=== PATIENT | female | born 1970 | race Caucasian/White ===

== ENCOUNTER 2016-11-26 19:05 | Emergency (ER) | payer MEDICAID ==
[2016-11-26 19:14] VITALS: BMI 24.9
[2016-11-26 19:19] VITALS: BP 156/95; PULSE 75; RESP 19; TEMP 97.8; O2SAT 100
[2016-11-26] MEDS ORDERED: DiphenhydrAMINE 50 mg/ml Inj IVP STA (19:41)
[2016-11-26] MEDS ORDERED: Sodium Chloride 0.9% 1,000 ML IV STA (19:41)
[2016-11-26] MEDS ORDERED: Famotidine 20mg/50ml 20 MG/50 ML BAG IVPB STA (19:42)
--- NOTE | 2016-11-26 19:47 | ED PDOC ---
Arrival/HPI <Robert Forrest - Last Filed: 11/26/16 19:53> - General Historian: Patient - History of Present Illness Time/Duration: < week Context: Home <Juan Jose Stauffer - Last Filed: 12/03/16 22:13> - General Chief Complaint: Allergic Reaction Time Seen by Provider: 11/26/16 19:29 - History of Present Illness Narrative History of Present Illness (Text): 11/26/16 19:43 This 46 yo female presents to this ED c/o b/l facial and neck rash x 4 days. Patient admits she had hair colored x 4 days ago. Denies sob, wheezing, dysphagia, dizziness, recent travel, or sick contact. (Juan Jose Stauffer) Past Medical History - Provider Review Nursing Documentation Reviewed: Yes - Infectious Disease Hx of Infectious Diseases: None - Psychiatric Hx Substance Use: No - Surgical History Hx Section: Yes (x2) Other/Comment: tummy tuck - Anesthesia Hx Anesthesia: Yes Hx Anesthesia Reactions: No <Juan Jose Stauffer - Last Filed: 12/03/16 22:13> Family/Social History - Physician Review Nursing Documentation Reviewed: Yes Family/Social History: No Known Family HX Smoking Status: Current Some Days Smoker Hx Alcohol Use: Yes Frequency of alcohol use: Socially Hx Substance Use: No <Juan Jose Stauffer - Last Filed: 12/03/16 22:13> Allergies/Home Meds <Robert Forrest - Last Filed: 11/26/16 19:53> <Juan Jose Stauffer - Last Filed: 12/03/16 22:13> Allergies/Adverse Reactions: Allergies No Known Allergies Allergy (Verified 11/26/16 19:14) Home Medications: Home Meds Medication Instructions Recorded Confirmed Cyclobenzaprine [Flexeril] 1 tab PO DAILY 11/26/16 11/26/16 Zolpidem [Ambien] 10 mg PO HS 11/26/16 11/26/16 traMADol [Ultram] 1 tab PO DAILY 11/26/16 11/26/16 Review of Systems - Review of Systems Constitutional: Normal. absent: Fatigue, Weight Change, Fevers Eyes: Normal ENT: Normal Respiratory: Normal Cardiovascular: Normal Gastrointestinal: Normal Genitourinary Female: Normal Musculoskeletal: Normal Skin: Rash Neurological: Normal, Headache (rash over forhead and scalp) Endocrine: Normal Hemo/Lymphatic: Normal Psychiatric: Normal <Juan Jose Stauffer P - Last Filed: 12/03/16 22:13> Physical Exam Temperature: Afebrile Blood Pressure: Normal Pulse: Regular Respiratory Rate: Normal Appearance: Positive for: Well-Appearing, Non-Toxic, Comfortable Pain Distress: None Mental Status: Positive for: Alert and Oriented X 3 - Systems Exam Head: Present: Atraumatic, Normocephalic Pupils: Present: PERRL Extroacular Muscles: Present: EOMI Conjunctiva: Present: Normal Mouth: Present: Moist Mucous Membranes Neck: Present: Normal Range of Motion Respiratory/Chest: Present: Clear to Auscultation, Good Air Exchange. No: Respiratory Distress, Accessory Muscle Use, Wheezes Upper Extremity: Present: Normal Inspection, Normal ROM, NORMAL PULSES, Neurovascularly Intact Lower Extremity: Present: Normal Inspection, NORMAL PULSES, Normal ROM Neurological: Present: GCS=15, CN II-XII Intact, Speech Normal, Motor Func Grossly Intact, Normal Sensory Function, Gait Normal Skin: Present: Warm, Dry, Rashes (mild papular rash, resembles contact dermatitis, blanches on palpation), Normal Color Psychiatric: Present: Alert, Oriented x 3 <Juan Jose Stauffer P - Last Filed: 12/03/16 22:13> Vital Signs Temp Pulse Resp BP Pulse Ox 11/26/16 19:19 97.8 F 75 19 156/95 H 100 Medical Decision Making <Robert Forrest - Last Filed: 11/26/16 19:53> Re-evaluation Time: 21:23 Reassessment Condition: Re-examined, Improved <Juan Jose Stauffer P - Last Filed: 12/03/16 22:13> ED Course and Treatment: 11/26/16 21:22 Rash has improved. Patient feels well on her normal state of life. No wheezing. Vital sign stable. (Juan Jose Stauffer P) - Medication Orders Current Medication Orders: Discontinued Medications Diphenhydramine HCl (Benadryl) 50 mg IVP STAT STA Stop: 11/26/16 19:42 Last Admin: 11/26/16 20:17 Dose: 50 mg Famotidine (Pepcid 20mg/50ml Premix) 20 mg in 50 mls @ 100 mls/hr IVPB STAT STA Stop: 11/26/16 20:11 Last Admin: 11/26/16 20:12 Dose: 100 mls/hr Sodium Chloride (Sodium Chloride 0.9%) 1,000 mls @ 999 mls/hr IV .Q1H1M STA Stop: 11/26/16 20:41 Last Admin: 11/26/16 20:16 Dose: 999 mls/hr Methylprednisolone (Solu-Medrol) 125 mg IVP STAT STA Stop: 11/26/16 19:43 Last Admin: 11/26/16 20:17 Dose: 125 mg - 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 <Robert Forrest - Last Filed: 11/26/16 19:53> Disposition/Present on Arrival <Robert Forrest - Last Filed: 11/26/16 19:53> - Present on Arrival Any Indicators Present on Arrival: No History of DVT/PE: No History of Uncontrolled Diabetes: No Urinary Catheter: No History of Decub. Ulcer: No History Surgical Site Infection Following: None - Disposition Have Diagnosis and Disposition been Completed?: Yes Disposition Time: 21:23 Patient Plan: Discharge <Juan Jose Stauffer - Last Filed: 12/03/16 22:13> - Disposition Diagnosis: Dermatitis due to cosmetics Disposition: HOME/ ROUTINE Condition: GOOD Discharge Instructions (ExitCare): Contact Dermatitis (ED) Additional Instructions: Call private doctor for follow up visit. Take medication as instructed. Return to emergency if symptoms worsen Prescriptions: Famotidine [Pepcid] 40 mg PO DAILY #7 tablet Hydroxyzine Pamoate [Vistaril] 25 mg PO Q6H PRN #20 capsule PRN Reason: Itching / Pruritus Prednisone [Deltasone] 60 mg PO DAILY #12 tablet Referrals: Yolanda Kent MD [Primary Care Provider] - Follow up with primary Forms: WORK NOTE
== END 2016-11-26 21:36 | disposition home or self-care (01) ==
LOC: ED 19:05
DX: L25.0 Unspecified contact dermatitis due to cosmetics (principal); F17.200 Nicotine dependence, unspecified, uncomplicated
CPT/HCPCS: 96374; 96375; 99283; J1200; J2930; J7040

== ENCOUNTER 2017-01-12 14:45 | Emergency (ER) | payer MEDICAID ==
[2017-01-12 15:03] VITALS: BMI 24.7
[2017-01-12 15:06] VITALS: O2SAT 100
[2017-01-12 16:00] VITALS: BP 154/97; PULSE 75; RESP 19; TEMP 99
--- NOTE | 2017-01-12 16:30 | ED PDOC ---
Arrival/HPI - General Chief Complaint: Abnormal Skin Integrity Time Seen by Provider: 01/12/17 15:22 Historian: Patient - History of Present Illness Narrative History of Present Illness (Text): 01/12/17 Elena Malave is a 46 year old female, who presents to the emergency department complaining of a possible allergic reaction that developed on her face three days ago. Patient reports noticing redness and itchiness around her eyes, cheek , and neck area. She decided to go to her PMD and was prescribed with Zyrtec but there has been no improvement since then. Patient also states a few months ago she came to the emergency department for the same problem and was d/c home with medication that solved the problem. She is unsure of what may be causing the reaction, but she denies any contact with new chemicals. Patient denies shortness of breath, chest pain, fever, or any other complaints. Time/Duration: < week (3 days) Symptom Onset: Sudden Symptom Course: Unchanged Associated Symptoms (Text): rash around eyes, cheek, and neck Past Medical History - Provider Review Nursing Documentation Reviewed: Yes - Infectious Disease Hx of Infectious Diseases: None - Musculoskeletal/Rheumatological Hx Back Pain: Yes - Psychiatric Hx Substance Use: No - Surgical History Hx Section: Yes (x2) Other/Comment: tummy tuck - Anesthesia Hx Anesthesia: Yes Hx Anesthesia Reactions: No Family/Social History - Physician Review Nursing Documentation Reviewed: Yes Family/Social History: No Known Family HX Smoking Status: Light Smoker < 10 Cigarettes Daily Hx Alcohol Use: Yes Frequency of alcohol use: Socially Hx Substance Use: No Allergies/Home Meds Allergies/Adverse Reactions: Allergies Penicillins Allergy (Verified 01/12/17 15:03) RASH Home Medications: Home Meds Medication Instructions Recorded Confirmed Zolpidem [Ambien] 10 mg PO HS 11/26/16 01/12/17 traMADol [Ultram] 1 tab PO DAILY 11/26/16 01/12/17 Carisoprodol [Soma] 1 tab PO BID 01/12/17 01/12/17 Review of Systems - Review of Systems Constitutional: absent: Fevers Respiratory: absent: SOB Cardiovascular: absent: Chest Pain Gastrointestinal: absent: Abdominal Pain, Diarrhea, Nausea Skin: Rash (rash around eyes, cheeks, and neck ), Other (itchiness and swelling) Neurological: absent: Headache Physical Exam Vital Signs Reviewed: Yes Vital Signs Temp Pulse Resp BP Pulse Ox 01/12/17 15:58 99.0 F 75 19 154/97 H 100 01/12/17 15:08 149/95 H 01/12/17 15:06 98.3 F 90 18 161/102 H 100 Temperature: Afebrile Blood Pressure: Hypertensive Pulse: Regular Respiratory Rate: Normal Appearance: Positive for: Well-Appearing, Non-Toxic, Comfortable Pain Distress: None Mental Status: Positive for: Alert and Oriented X 3 - Systems Exam Head: Present: Atraumatic, Normocephalic Pupils: Present: PERRL Extroacular Muscles: Present: EOMI Conjunctiva: Present: Normal Mouth: Present: Moist Mucous Membranes Neck: Present: Normal Range of Motion Respiratory/Chest: Present: Clear to Auscultation, Good Air Exchange. No: Respiratory Distress, Accessory Muscle Use Cardiovascular: Present: Regular Rate and Rhythm, Normal S1, S2. No: Murmurs Abdomen: Present: Normal Bowel Sounds. No: Tenderness, Distention, Peritoneal Signs Upper Extremity: Present: Normal Inspection. No: Cyanosis, Edema Lower Extremity: Present: Normal Inspection. No: Edema Neurological: Present: GCS=15, CN II-XII Intact, Speech Normal Skin: Present: Warm, Dry, Normal Color, Other (urticarial rash around eyes, neck and cheeks. no warmth or evidence of cellulitis.). No: Rashes Psychiatric: Present: Alert, Oriented x 3, Normal Insight, Normal Concentration Medical Decision Making ED Course and Treatment: 01/12/17 Impression: 46 year old female with allergic reaction around eyes, cheeks, and neck region for the past 3 days. Differential Diagnosis included but are not limited to: allergic reaction Plan: -- Benadryl, Pepcid, and Prednisone -- Reassess and disposition Progress Notes: Reevaluation: On reevaluation the patient feels better and is in no acute distress. I have discussed the results and plan with the patient, who expresses understanding. Patient given the opportunity to ask question, all questions were answered and there is agreement with the plan to discharge the patient home and to follow up with PMD. - Medication Orders Current Medication Orders: Discontinued Medications Diphenhydramine HCl (Benadryl) 50 mg PO STAT STA Stop: 01/12/17 15:32 Last Admin: 01/12/17 15:40 Dose: 50 mg Famotidine (Pepcid) 20 mg PO STAT STA Stop: 01/12/17 15:30 Last Admin: 01/12/17 15:40 Dose: 20 mg Prednisone (Prednisone Tab) 60 mg PO STAT ONE Stop: 01/12/17 15:30 Last Admin: 01/12/17 15:42 Dose: 60 mg - Scribe Statement The provider has reviewed the documentation as recorded by the Scribe 01/12/2017 Noelle Tucker Provider Scribe Attestation: All medical record entries made by the Scribe were at my direction and personally dictated by me. I have reviewed the chart and agree that the record accurately reflects my personal performance of the history, physical exam, medical decision making, and the department course for this patient. I have also personally directed, reviewed, and agree with the discharge instructions and disposition. Disposition/Present on Arrival - Present on Arrival Any Indicators Present on Arrival: No History of DVT/PE: No History of Uncontrolled Diabetes: No Urinary Catheter: No History of Decub. Ulcer: No History Surgical Site Infection Following: None - Disposition Have Diagnosis and Disposition been Completed?: Yes Diagnosis: Rash due to allergy Disposition: HOME/ ROUTINE Disposition Time: 15:58 Patient Plan: Discharge Condition: GOOD Discharge Instructions (ExitCare): Anaphylaxis (ED) Additional Instructions: Ms Malave, thank you for letting us take care of you today. Your provider was Dr. Montez. You were treated for Allergic reaction. The emergency medical care you received today was directed at your acute symptoms. If you were prescribed any medication, please fill it and take as directed. It may take several days for your symptoms to resolve. Return to the Emergency Department if your symptoms worsen, do not improve, or if you have any other problems. Please contact your doctor or call one of the physicians/clinics you have been referred to that are listed on the Patient Visit Information form that is included in your discharge packet. Bring any paperwork you were given at discharge with you along with any medications you are taking to your follow up visit. Our treatment cannot replace ongoing medical care by a primary care provider (PCP) outside of the emergency department. Thank you for allowing the [facility] team to be part of your care today. If you had an X-Ray or CT scan: A Radiologist will review the ED reading if any change in treatment is needed we will contact you. If you had a blood, urine, or wound culture: It will take several days for the results, if any change in treatment is needed we will contact you. If you had an STI test: It will take 48 hours for the results. Please call after 1 week if you have not heard back. Prescriptions: Famotidine 20 mg PO DAILY #7 tablet Hydroxyzine Pamoate [Vistaril] 25 mg PO Q6 #30 capsule Prednisone 50 mg PO DAILY #4 tab Referrals: [facility] Carin Req, [Non-Staff] - Follow up with primary Forms: [facility] (Kyrgyz)
== END 2017-01-12 15:59 | disposition home or self-care (01) ==
LOC: ED 14:45
DX: T78.49XA Other allergy, initial encounter (principal); X58.XXXA Exposure to other specified factors, initial encounter

== ENCOUNTER 2017-09-06 12:35 | Emergency (ER) | payer MEDICAID ==
[2017-09-06 12:36] VITALS: BMI 24.7
--- NOTE | 2017-09-06 12:39 | ED PDOC ---
Arrival/HPI - General Time Seen by Provider: 09/06/17 12:37 Historian: Patient - History of Present Illness Narrative History of Present Illness (Text): 09/06/17 12:38 47 y/o female, pmh including dermatitis, penicillin, c/o facial and neck itching x 2 days with no change in soap/clothing/detergent. Pt. 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 Past Medical History - Provider Review Nursing Documentation Reviewed: Yes - Infectious Disease Hx of Infectious Diseases: None - Musculoskeletal/Rheumatological Hx Back Pain: Yes - Psychiatric Hx Substance Use: No - Surgical History Hx Section: Yes (x2) Other/Comment: tummy tuck - Anesthesia Hx Anesthesia: Yes Hx Anesthesia Reactions: No Family/Social History - Physician Review Nursing Documentation Reviewed: Yes Family/Social History: Unknown Family HX Smoking Status: Light Smoker < 10 Cigarettes Daily Hx Alcohol Use: Yes Hx Substance Use: No Allergies/Home Meds Allergies/Adverse Reactions: Allergies Penicillins Allergy (Verified 01/12/17 15:03) RASH Home Medications: Home Meds Medication Instructions Recorded Confirmed Zolpidem [Ambien] 10 mg PO HS 11/26/16 09/06/17 traMADol [Ultram] 50 mg pe PO BID 11/26/16 09/06/17 Carisoprodol [Soma] 1 tab PO BID 01/12/17 09/06/17 Review of Systems - Review of Systems Constitutional: absent: Fatigue, Fevers Eyes: absent: Vision Changes ENT: absent: Hearing Changes Respiratory: absent: SOB Cardiovascular: absent: Chest Pain Gastrointestinal: absent: Abdominal Pain, Nausea, Vomiting Skin: Rash, Pruritis, Skin Lesions. absent: Laceration, Abscess, Ulcer Neurological: absent: Headache Psychiatric: absent: Anxiety, Depression, Suicidal Ideation Physical Exam Vital Signs Temp Pulse Resp BP Pulse Ox 09/06/17 12:58 98.8 F 89 18 137/87 100 - Systems Exam Head: Present: Atraumatic, Normocephalic Pupils: Present: PERRL Extroacular Muscles: Present: EOMI Conjunctiva: Present: Normal Mouth: Present: Moist Mucous Membranes Neck: Present: Normal Range of Motion Respiratory/Chest: Present: Clear to Auscultation, Good Air Exchange. No: Respiratory Distress, Accessory Muscle Use Cardiovascular: Present: Regular Rate and Rhythm, Normal S1, S2. No: Murmurs Abdomen: No: Tenderness, Distention, Peritoneal Signs Back: Present: Normal Inspection Upper Extremity: Present: Normal Inspection. No: Cyanosis, Edema Lower Extremity: Present: Normal Inspection. No: Edema Neurological: Present: GCS=15, Speech Normal, Motor Func Grossly Intact, Gait Normal, Memory Normal Skin: Present: Warm, Dry, Rashes (visible papule urticarial rash noted on the facial and neck/anterior chest region, no periorbital or perioral swelling, airway patent, no bullseye or target signs. ), Normal Color Psychiatric: Present: Alert, Oriented x 3, Normal Insight, Normal Concentration Medical Decision Making ED Course and Treatment: 09/06/17 12:47 -IV benadryl/pepcid/solumedrol/ns -Observe and reassess 09/06/17 14:43 -Itching resolved, rash from the facial region resolved, neck region still noted to have rash, no streaking or cellulitis. 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 - Medication Orders Current Medication Orders: Discontinued Medications Diphenhydramine HCl (Benadryl) 50 mg IVP STAT STA Stop: 09/06/17 12:59 Last Admin: 09/06/17 13:33 Dose: 50 mg IVP Administration Document 09/06/17 13:33 EQ (Rec: 09/06/17 13:33 EQ [id number]) Charges for Administration # of IVP Administrations 1 Famotidine (Pepcid) 20 mg IVP STAT STA Stop: 09/06/17 12:59 Last Admin: 09/06/17 13:32 Dose: 20 mg IVP Administration Document 09/06/17 13:32 EQ (Rec: 09/06/17 13:32 EQ [id number]) Charges for Administration # of IVP Administrations 1 Sodium Chloride (Sodium Chloride 0.9%) 1,000 mls @ 999 mls/hr IV .Q1H1M STA Stop: 09/06/17 13:58 Last Admin: 09/06/17 13:32 Dose: 999 mls/hr eMAR Start Stop Document 09/06/17 13:32 EQ (Rec: 09/06/17 13:32 EQ [id number]) Intravenous Solution Start Date 09/06/17 Start Time 13:32 Methylprednisolone (Solu-Medrol) 125 mg IVP STAT STA Stop: 09/06/17 12:59 Last Admin: 09/06/17 13:33 Dose: 125 mg IVP Administration Document 09/06/17 13:33 EQ (Rec: 09/06/17 13:33 EQ [id number]) Charges for Administration # of IVP Administrations 1 - 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 Disposition/Present on Arrival - Present on Arrival Any Indicators Present on Arrival: No History of DVT/PE: No History of Uncontrolled Diabetes: No Urinary Catheter: No History of Decub. Ulcer: No History Surgical Site Infection Following: None - Disposition Have Diagnosis and Disposition been Completed?: Yes Diagnosis: Hives, Dermatitis Disposition: HOME/ ROUTINE Disposition Time: 12:49 Patient Plan: Discharge Patient Problems: Current Active Problems Problem Status Onset Hives Acute Dermatitis Acute Condition: IMPROVED Additional Instructions: -Discharge home with benadryl, pepcid, prednisone, lotrisone, avoid exposure to the sun/heat, keep the skin cool and dry, follow up with your own pmd and high lift driver within 2 days, return to the ER for any new or worsening signs or symptoms. Prescriptions: Clotrimazole/Betamethasone [Lotrisone] 1 appl EXT BID #30 g Referrals: Daniel Duque MD [Staff Provider] - Follow up with primary Forms: WORK NOTE
[2017-09-06] MEDS ORDERED: Sodium Chloride 0.9% 1,000 ML IV STA (12:58)
[2017-09-06] MEDS ORDERED: DiphenhydrAMINE 50 mg/ml Inj IVP STA (12:58)
[2017-09-06 12:59] VITALS: RESP 18; TEMP 98.8
[2017-09-06 15:27] VITALS: BP 135/79; PULSE 79; O2SAT 99
== END 2017-09-06 15:30 | disposition home or self-care (01) ==
LOC: ED 12:35
DX: L25.9 Unspecified contact dermatitis, unspecified cause (principal)
CPT/HCPCS: 96374; 96375; 99283; J1200; J2930; J7040